=== PATIENT | male | born 1975 | race African-American/Black ===

== ENCOUNTER 2017-08-25 05:00 | Emergency (ER) | payer OTHER ==
[2017-08-25] MEDS ORDERED: PHENYLephrine (100 MCG/ML) 10ML SYG ZFS (05:30)
[2017-08-25] MEDS: morphine 10 MG INJ IM (05:37)
== END 2017-08-25 09:56 | disposition home or self-care (01) ==
LOC: E/R 05:00
DX: N48.33 Priapism, drug-induced (principal)
CPT/HCPCS: 96372; 99284-25

== ENCOUNTER 2017-10-28 06:35 | Emergency (ER) | payer OTHER ==
[2017-10-28] MEDS: IBUPROFEN 800 MG TAB PO (07:14)
[2017-10-28] MEDS: LIDOCAINE 1% (MDV) 20 ML INJ SC (07:27)
[2017-10-28] MEDS: CLINDAMYCIN 900 MG/D5W (PMX) 50 ML IVPB (07:31)
[2017-10-28] MEDS: SOD CHLORIDE 0.9% 1,000 ML IV (07:31)
== END 2017-10-28 08:54 | disposition home or self-care (01) ==
LOC: FTE 06:35
DX: L02.31 Cutaneous abscess of buttock (principal); L03.317 Cellulitis of buttock; F15.10 Other stimulant abuse, uncomplicated; F17.210 Nicotine dependence, cigarettes, uncomplicated; Z21 Asymptomatic human immunodeficiency virus [HIV] infection status
CPT/HCPCS: 10060; 96374; 99284-25